=== PATIENT | male | born 1950 | race Caucasian/White ===

== ENCOUNTER → 2016-09-21 | Outpatient (CLI) | payer OTHER ==
[~2016-09-21] MED LIST: HYDR12.53 PO; RIVA20TA2 PO
--- NOTE | 2016-09-21 14:06 | RAD ---
INDICATION: Left leg pain and swelling COMPARISON: None. TECHNIQUE: Grayscale, color and doppler ultrasound images were obtained of the left lower extremity venous vasculature. LEFT: No thrombus identified in the common femoral vein, femoral vein, popliteal vein or visualized calf veins. Focused ultrasound images are obtained of the left calf which demonstrates the patient's musculature without a large fluid collection seen. IMPRESSION: 1. No thrombus identified in deep venous system of the left lower extremity.
== END | disposition home or self-care (01) ==
LOC: US 12:26
PROVIDERS: ATTEND Physician Assistant Medical
DX: M79.662 Pain in left lower leg (principal); M79.89 Other specified soft tissue disorders
CPT/HCPCS: 93971

== ENCOUNTER → 2020-01-22 | Outpatient (CLI) | payer MEDICARE ==
[~2020-01-22] MED LIST changes: -HYDR12.53 PO; +HYDR12.575 PO
--- NOTE | 2020-01-22 10:42 | KCIC ---
CT CHEST WO CONTRAST Indication: Chronic cough, asbestos exposure Technique: Noncontrast CT imaging was performed of the chest, multiplanar reconstruction images submitted. One or more of the following individualized dose reduction techniques were utilized for this examination: 1. Automated exposure control 2. Adjustment of the mA and/or kV according to patient size 3. Use of iterative reconstruction technique. Comparison: None other than CT abdomen exam June 17, 2015 Findings: There are 3 small, separate right lower lobe nodules best seen on images 42 and 43, largest about 2 mm. There is a 4 mm right lower lobe nodule with 37 series 2. There is a 2 mm right middle lobe nodule best seen image 35 series 2. There is no infiltrate, pleural or pericardial fluid, pneumothorax. No significant calcified pleural plaque is identified. There is again hypodense lesion of the visualized right lobe of the liver on the order of 35 mm transverse by 34 mm AP by 51 mm CC, internal density measurements not of simple fluid at 33 Hounsfield units. Tubular ascending thoracic aorta at is dilated about 4 cm. Aortic root is estimated about 39 mm. There is coronary calcification. Major airways are patent. IMPRESSION: 1. There are small pulmonary nodules as stated, largest about 4 mm in the right lower lobe. If increased risk factors for neoplasm, optional 12 month follow-up is recommended as per revised Fleischner guidelines, no additional follow-up needed if low risk factors. 2. There is dilatation of the tubular ascending thoracic aorta about 40 mm. 3. There is again hypodense lesion of the right lobe of the liver as seen on previous abdomen CT, and features on that exam of a hemangioma. 4. There is coronary calcification. Electronically signed by: Jaden Kapadia MD (01/22/2020 10:39 AM) [id number]
== END ==
LOC: KCIC CT 09:21
PROVIDERS: ATTEND Physician Assistant Medical
DX: R91.8 Other nonspecific abnormal finding of lung field (principal); I25.10 Atherosclerotic heart disease of native coronary artery without angina pectoris; I77.810 Thoracic aortic ectasia; K76.9 Liver disease, unspecified; Z77.090 Contact with and (suspected) exposure to asbestos
CPT/HCPCS: 71250